=== PATIENT | female | born 1965 | race Hispanic/Latino ===

== ENCOUNTER 2020-08-08 09:31 | Emergency (ER) | payer MEDICARE ==
[2020-08-08 09:42] VITALS: BP 140/90
[2020-08-08 10:24] LABS: Bilirubin,Urine NEG (Negative); Blood,Urine SM (Negative); Color,Urine Yellow (Yellow); Protein,Urine <15 mg/dL mg/dL (Negative); Urobilinogen,Urine < 2.0 mg/dL (<2.0)
--- NOTE | 2020-08-08 10:49 | Cat Scan Report ---
CT ABDOMEN AND PELVIS WITHOUT CONTRAST INDICATION / CLINICAL INFORMATION: suprapubic pain/recurrent uti. TECHNIQUE: Axial CT images were obtained through the abdomen and pelvis without IV contrast. Sagittal and mcclain l reformatted images. All CT scans at this location are performed using CT dose reduction for ALARA b y means of automated exposure control. COMPARISON: None available. FINDINGS: LOWER CHEST: No significant abnormality. LIVER: No significant abnormality. GALLBLADDER: No significant abnormality. BILE DUCTS: No significant abnormality. PANCREAS: No significant abnormality. SPLEEN: No significant abnormality. ADRENALS: No significant abnormality. RIGHT KIDNEY and URETER: No significant abnormality. LEFT KIDNEY and URETER: A 2.2 mm calculus is suspected in the distal left ureter on axial image 150s. Minimal left hydronephrosis is evident. A 2 mm calyceal stone is identified at the inferior pole of the left kidney. No cystic disease or obvious mass on noncontrast CT. STOMACH and SMALL BOWEL: No significant abnormality. COLON: No significant abnormality. APPENDIX: No significant abnormality. PERITONEUM: No free fluid. No free air. No fluid collection. LYMPH NODES: No significant adenopathy. AORTA and ARTERIES: No significant abnormality. IVC and VEINS: No significant abnormality. URINARY BLADDER: No significant abnormality. REPRODUCTIVE ORGANS: No significant abnormality. ADDITIONAL FINDINGS: None. SKELETAL SYSTEM: Mild to moderate lumbar spondylosis. No fracture or suspicious bony lesion. IMPRESSION: Left nephrolithiasis as described. 2.2 mm distal left ureteral stone resulting in minimal left hydron ephrosis. Signer Name: Jesus Hay Jr, MD Signed: 08/08/2020 10:45 AM Workstation Name: [id number]
[2020-08-08 11:21] LABS: Alanine Aminotransferase 35 units/L (7-56); Albumin 4.3 g/dL (3.9-5); BUN/Creatinine Ratio 18; Blood Urea Nitrogen 16 mg/dL (7-17); Calcium 9.6 mg/dL (8.4-10.2); Hemolysis Index 5
--- NOTE | 2020-08-08 11:28 | Emergency Department Report ---
ED Abdominal Pain HPI - General Chief Complaint: Abdominal Pain Stated Complaint: UTI Time Seen by Provider: 08/08/20 10:10 Source: patient Mode of arrival: Ambulatory Limitations: No Limitations - History of Present Illness Initial Comments: 54-year-old female presents to the ER today with complaints of suprapubic abdominal pain. Patient states that she feels like she has a UTI. Patient states that in the past months has been having suprapubic pain and urinary urgency and abdominal bloating and frequency. She states that she is visiting here from [place], she does not have a primary care doctor, but about 2 weeks ago she did a telemedicine call and the doctor sent her in a prescription for Bactrim. She states that she took all the antibiotics, she felt better for couple days but then her symptoms started flareup again today. Patient does admit that she has a history of recurrent UTIs. She states she has never been evaluated by a urologist for her UTIs or had w/u for her recurrent UTI. She denies any nausea, vomiting, fever, chills, back pain, urinary odor, or vaginal symptoms. She is menopausal and therefore has not had a menstrual cycle in several years. MD Complaint: abdominal pain -: month(s) (1) - Related Data Previous Rx's Medication Instructions Recorded Last Taken Type Ketorolac [Toradol] 10 mg PO Q6H PRN #20 tablet 08/08/20 Unknown Rx Phenazopyridine [Pyridium] 200 mg PO TID PRN #9 tab 08/08/20 Unknown Rx Tamsulosin [Flomax] 0.4 mg PO QDAY #5 cap 08/08/20 Unknown Rx Allergies Allergy/AdvReac Type Severity Reaction Status Date / Time No Known Allergies Allergy Unverified 08/08/20 09:32 ED Review of Systems ROS: Stated complaint: UTI Other details as noted in HPI ED Past Medical Hx - Past Medical History Previous Medical History?: No - Surgical History Past Surgical History?: No - Social History Smoking Status: Never Smoker Substance Use Type: Alcohol - Medications Home Medications: Home Medications Medication Instructions Recorded Confirmed Last Taken Type Ketorolac [Toradol] 10 mg PO Q6H PRN #20 tablet 08/08/20 Unknown Rx Phenazopyridine [Pyridium] 200 mg PO TID PRN #9 tab 08/08/20 Unknown Rx Tamsulosin [Flomax] 0.4 mg PO QDAY #5 cap 08/08/20 Unknown Rx ED Physical Exam - General Limitations: No Limitations General appearance: alert, in no apparent distress - Head Head exam: Present: atraumatic, normocephalic, normal inspection - Eye Eye exam: Present: normal appearance, PERRL, EOMI Pupils: Present: normal accommodation - Respiratory Respiratory exam: Present: normal lung sounds bilaterally. Absent: respiratory distress - GI/Abdominal GI/Abdominal exam: Present: soft, tenderness (Mild suprapubic tenderness without guarding or rebound). Absent: distended, guarding, rebound - Back Exam Back exam: Present: normal inspection. Absent: CVA tenderness (R), CVA tenderness (L) - Neurological Exam Neurological exam: Present: alert, oriented X3, CN II-XII intact - Psychiatric Psychiatric exam: Present: normal affect, normal mood - Skin Skin exam: Present: intact ED Course Vital Signs 08/08/20 09:39 Temperature 97.6 F Pulse Rate 87 Respiratory 18 Rate Blood Pressure 140/90 O2 Sat by Pulse 100 Oximetry ED Medical Decision Making - Lab Data Result diagrams: 08/08/20 10:45 08/08/20 10:45 - Radiology Data Radiology results: report reviewed Findings [facility] [address] [place] [address] Cat Scan Report Signed Patient: ROBIN CASTRO MR#: [id number] 1 : 1965 Acct:[id number] Age/Sex: 54 / F ADM Date: 08/08/20 Loc: ED Attending Dr: Ordering Physician: DERRICK DUGGAN Date of Service: 08/08/20 Procedure(s): CT abdomen pelvis wo con Accession Number(s): [id number] cc: DERRICK DUGGAN CT ABDOMEN AND PELVIS WITHOUT CONTRAST INDICATION / CLINICAL INFORMATION: suprapubic pain/recurrent uti. TECHNIQUE: Axial CT images were obtained through the abdomen and pelvis without IV contrast. Sagittal and coronal reformatted images. All CT scans at this location are performed using CT dose reduction for ALARA by means of automated exposure control. COMPARISON: None available. FINDINGS: LOWER CHEST: No significant abnormality. LIVER: No significant abnormality. GALLBLADDER: No significant abnormality. BILE DUCTS: No significant abnormality. PANCREAS: No significant abnormality. SPLEEN: No significant abnormality. ADRENALS: No significant abnormality. RIGHT KIDNEY and URETER: No significant abnormality. LEFT KIDNEY and URETER: A 2.2 mm calculus is suspected in the distal left ureter on axial image 150s. Minimal left hydronephrosis is evident. A 2 mm calyceal stone is identified at the inferior pole of the left kidney. No cystic disease or obvious mass on noncontrast CT. STOMACH and SMALL BOWEL: No significant abnormality. COLON: No significant abnormality. APPENDIX: No significant abnormality. PERITONEUM: No free fluid. No free air. No fluid collection. LYMPH NODES: No significant adenopathy. AORTA and ARTERIES: No significant abnormality. IVC and VEINS: No significant abnormality. URINARY BLADDER: No significant abnormality. REPRODUCTIVE ORGANS: No significant abnormality. ADDITIONAL FINDINGS: None. SKELETAL SYSTEM: Mild to moderate lumbar spondylosis. No fracture or suspicious bony lesion. IMPRESSION: Left nephrolithiasis as described. 2.2 mm distal left ureteral stone resulting in minimal left hydronephrosis. Signer Name: Jesus Hay Jr, MD Signed: 08/08/2020 10:45 AM Workstation Name: [id number] Transcribed By: TTR Dictated By: JESUS HAY JR, MD Electronically Authenticated By: JESUS HAY JR, MD Signed Date/Time: 08/08/20 104 DD/ 1041 TD/TT: - Medical Decision Making 54-year-old female presents to the ER today with complaints of suprapubic abdominal pain. Patient states that she feels like she has a UTI. Patient states that in the past months has been having suprapubic pain and urinary urgency and abdominal bloating and frequency. She states that she is visiting here from [place], she does not have a primary care doctor, but about 2 weeks ago she did a telemedicine call and the doctor sent her in a prescription for Bactrim. She states that she took all the antibiotics, she felt better for couple days but then her symptoms started flareup again today. Patient does admit that she has a history of recurrent UTIs. She states she has never been evaluated by a urologist for her UTIs or had w/u for her recurrent UTI. She denies any nausea, vomiting, fever, chills, back pain, urinary odor, or vaginal symptoms. She is menopausal and therefore has not had a menstrual cycle in several years. Labs reviewed, urinalysis does not suggest a UTI at this time, but a urine culture is pending, and CMP unremarkable. CT abdomen pelvis without contrast shows that patient does have a distal left ureteral stone measuring 2.2 mm and mild hydronephrosis as well as has a 2 mm stone in the lower pole of the left kidney. Otherwise CT abdomen pelvis unremarkable. Patient currently resting comfortably she is not in any acute pain or respiratory distress. She is well-appearing, nontoxic and not ill-appearing. Discussed results with patient. He states that she is not scheduled to return back to [place] on till August. She will be given referral to local urologist for follow-up. Patient encouraged to drink lots of fluids and take the medications as prescribed. Informed her that if her urine culture is positive we will notify her and start on antibiotics then with at this time there is no indication for any antibiotics. Patient's vital signs have been stable. She expressed understanding of instructions and agree with plan. Patient was stable at time of discharge. She understands to return to the ER if her symptoms of pain worsens in any way. Critical care attestation.: If time is entered above; I have spent that time in minutes in the direct care of this critically ill patient, excluding procedure time. ED Disposition Clinical Impression: Kidney stone Disposition: DC-01 TO HOME OR SELFCARE Is pt being admited?: No Does the pt Need Aspirin: No Condition: Stable Instructions: Kidney Stones, Abdominal Pain (ED) Additional Instructions: Take the Toradol, Flomax and Pyridium as prescribed. Is important that you drink lots of water. You will be notified about your urine culture if its positive. Follow-up with the urologist listed on your discharge instructions. Return to the ER if your symptoms worsens or changes in any way. Prescriptions: Tamsulosin [Flomax] 0.4 mg PO QDAY #5 cap Phenazopyridine [Pyridium] 200 mg PO TID PRN #9 tab PRN Reason: Bladder spasm Ketorolac [Toradol] 10 mg PO Q6H PRN #20 tablet PRN Reason: Pain Referrals: SHANNEN GONG MD [Staff Physician] - 3-5 Days Time of Disposition: 11:41
[2020-08-08 11:30] LABS: Basophils % (Auto) 0.6 % (0.0-1.8); Eosinophils # (Auto) 0.1 K/mm3 (0.0-0.4); Eosinophils % (Auto) 2.4 % (0.0-4.3); Lymphocytes # (Auto) 2.3 K/mm3 (1.2-5.4); Lymphocytes % (Auto) 38.4 % (13.4-35.0); Mean Corpuscular HGB Conc 34 % (30-34); Mean Corpuscular Volume 96 fl (79-97); Monocytes # (Auto) 0.4 K/mm3 (0.0-0.8); Monocytes % (Auto) 7.4 % (0.0-7.3); Platelet Count 315 K/mm3 (140-440); Red Blood Count 4.27 M/mm3 (3.65-5.03); Red Cell Distribution Width 13.1 % (13.2-15.2)
== END 2020-08-08 12:06 | disposition home or self-care (01) ==
LOC: ED 09:31
DX: N20.0 Calculus of kidney (principal); Z79.899 Other long term (current) drug therapy
CPT/HCPCS: 36415; 74176; 80053; 81001; 85025; 87086